=== PATIENT | female | born 1965 ===

== ENCOUNTER 2019-12-17 09:02 | Outpatient (REF) | payer OTHER, SELFPAY ==
--- NOTE | 2019-12-17 09:52 | P.BOP_ITS ---
Brief Operative Note Date of procedure: 12/17/19 Surgeon: Trina Vargas, DO This is doctor Trina Vargas. This is an ultrasound-guided fine-needle aspiration report. Patient name: Taylor Woo : 1965 Date of Examination: 12/17/2019 Referring Physician Is: PCP Indication: Multinodular Thyroid Porcedure: Procedure was explained to the patient. Alternatives, the risk and benefits were discussed. Written consent was obtained. A time-out was also obtained. After sterile preparation, fine-needle aspiration of a Right Lower Pole Medial 1.0 cm thyroid nodule was performed using direct ultrasound guidance to confirm accurate needle placement. Three aspirations were made using 27 gauge needles. Samples were submitted for cytology. One pass was dedicated for [employer] sequencing preventive maintenance engineer testing. Our attention was then turned to a Right Lower Pole Lateral 1.0 cm nodule. Fine-needle aspiration of this Right Lower Pole Lateral 1.0 cm thyroid nodule was performed using direct ultrasound guidance to confirm accurate needle placem ent. Four aspirations were made using 27 gauge needles. Samples were submitted for cytology. One pass was dedicated for [employer] sequencing preventive maintenance engineer testing We then turned our attention to a Right Mid Pole 1.2 cm nodule. Fine-needle aspiration of this Right Mid Pole 1.2 cm thyroid nodule was performed using direct ultrasound guidance to confirm accurate needle placement. Three aspira tions were made using 27 gauge needles. Samples were submitted for cytology. One pass was dedicated for [employer] sequencing preventive maintenance engineer testing The patient tolerated the procedure well. Aftercare instructions were provided. Impression: Uncomplicated fine needle aspiration biopsy of a R Lower Pole Medial 1.0 cm thyroid nodule, a R Lower Pole Lateral 1.0 cm thyroid nodule and a R Mid Pole 1.2 cm thyroid nodule under ultrasound guideance. Estimated blood loss (mL): 0
[2019-12-17] MEDS: Lidocaine HCl 1 % MPF 5 ML VIAL SUBCUT (12:25)
== END 2019-12-17 09:03 | disposition home or self-care (01) ==
LOC: HO.US 09:02
PROVIDERS: Visit Provider Internal Medicine
DX: E05.20 Thyrotoxicosis with toxic multinodular goiter without thyrotoxic crisis or storm (principal)
CPT/HCPCS: 10005; 10006; 88172; 88173; 88177

== ENCOUNTER → 2020-01-21 13:11 | Outpatient (BNVA) | payer OTHER, SELFPAY | PROVIDERS: PCP Internal Medicine; Visit Provider Nurse Practitioner Family | DX: Z13.89 Encounter for screening for other disorder (principal) ==

== ENCOUNTER 2020-02-16 12:51 | Outpatient (REF) | payer OTHER, SELFPAY ==
[2020-02-16 14:30] LABS: MANUAL DIFF FLAG NO
[2020-02-16 14:34] LABS: Basophils Percent Auto 0.1 % (0-2); Eosinophils Absolute Auto 0.1 X10*3/uL (0.0-0.4); Eosinophils Percent Auto 0.6 % (0-4); Hematocrit 47.2 % (37-47); Hemoglobin 15.3 g/dl (12.0-16.0); Imm Gran Abs Auto 0.02 X10*3/uL (0.00-0.03); Imm Gran Pct Auto 0.2 % (0.0-0.4); Lymphocytes Absolute Auto 2.6 X10*3/uL (1.2-4.9); Lymphocytes Percent Auto 31.1 % (20-40); Mean Corpuscular HGB Conc 32.4 g/dl (31.0-35.0); Mean Corpuscular Hemoglobin 30.2 pg (27.0-33.0); Mean Corpuscular Volume 93.3 fL (80-98); Mean Platelet Volume 11.8 fL (9.4-12.3); Monocytes Absolute Auto 0.4 X10*3/uL (0.1-1.2); Neutrophils Absolute Auto 5.3 X10*3/uL (2.0-8.3); Platelet Count 242 X10*3/uL (160-400); Red Blood Count 5.06 X10*6/uL (4.20-5.50); Red Cell Distribution Width 14.5 % (11.0-16.0); White Blood Count 8.5 X10*3/uL (4.8-10.8)
[2020-02-16 14:37] LABS: Glucose Urine UA NEG (NEG); Leukocyte Esterase Urine NEG (NEG); Nitrite Urine NEG (NEG); PH 5.5 (5.0-8.0); Specific Gravity - Urine 1.025 (1.005-1.025); Urine Blood NEG (NEG); Urine Ketones NEG (NEG); Urine Protein NEG (NEG-TRACE)
[2020-02-16 14:39] LABS: Appearance Urine CLEAR; Color Urine YELLOW
[2020-02-16 14:49] LABS: Mucus Urine 3+ /LPF; RBC Urine 0 /HPF (0); Squamous Epithelial Cell Urine 3+ /LPF; WBC Urine 0 /HPF (0-4)
[2020-02-16 15:13] LABS: Alanine Aminotransferase 20 U/L (0-31); Albumin Level 4.8 g/dL (3.5-5.0); Alkaline Phosphatase 107 U/L (39-117); Anion Gap 17 (12-20); Aspartate Amino Transferase 23 U/L (5-31); Bilirubin Total 0.5 mg/dL (0.0-1.0); Blood Urea Nitrogen 14 mg/dL (9-16); Calcium 9.4 mg/dL (8.4-10.2); Carbon Dioxide 24 mmol/L (22-29); Chloride 105 mmol/L (96-108); Cholesterol 257 mg/dL; Estimated Glomerular Filt Rate > 60; Glucose Random 82 mg/dL (60-115); HDL Cholesterol 59 mg/dL; LDL Cholesterol Calculated 161 mg/dl; Sodium 141 mmol/L (135-145); Total Protein 8.2 g/dL (6.5-8.0); Triglycerides 185 mg/dL
[2020-02-16 15:26] LABS: Free T4 (Free Thyroxine) 1.06 ng/dL (0.71-1.85); Thyroid Stimulating Hormone 1.51 uIU/mL (0.32-4.0)
[2020-02-16 15:29] LABS: Vitamin D 25-OH Total 37.3 ng/mL (>30)
[2020-02-16 15:39] LABS: Folate 17.2 ng/mL (> or = 4.0); Vitamin B12 327 pg/mL (200-900)
[2020-02-17 19:22] LABS: Triiodothyronine T3 Total 83 ng/dL (76-181)
== END 2020-02-16 12:52 | disposition home or self-care (01) ==
LOC: HO.LAB 12:51
PROVIDERS: Internal Medicine; PCP Internal Medicine; Visit Provider Internal Medicine
DX: E78.00 Pure hypercholesterolemia, unspecified (principal); E05.20 Thyrotoxicosis with toxic multinodular goiter without thyrotoxic crisis or storm
CPT/HCPCS: 36415; 80053; 80061; 81001; 82306; 82607; 82746; 84439; 84443; 84480; 85025

== ENCOUNTER 2020-02-24 15:02 | Outpatient (REF) | payer OTHER, SELFPAY ==
--- NOTE | 2020-02-24 15:09 | MM_ITS ---
EXAMINATION: MM SCREENING DIGITAL BREAST TOMOSYNTHESIS, BILATERAL CLINICAL INFORMATION: Screening. Asymptomatic. The lifetime risk of breast cancer based on the Tyrer-Cuzick Model is 5.8%. COMPARISON: Mammography: November 11, 2018 and studies dating back to August 11, 2013 TECHNIQUE: Digital breast tomosynthesis is performed in both the craniocaudal and mediolateral oblique views along with computer-aided detection (CAD). Synthesized 2D images are generated from the tomosynthesis. FINDINGS: There are scattered areas of fibroglandular density (ACR BI-RADS breast composition Category b). There are no significant masses, abnormal calcifications, or other abnormalities. MM/MM tomosynthesis screening BI IMPRESSION: There are no significant changes from prior study. ASSESSMENT: BI-RADS 1: Negative RECOMMENDATION: Routine annual mammography screening. This patient's information was entered into a reminder system with a target due date for their next mammogram.
== END 2020-02-24 15:03 | disposition home or self-care (01) ==
LOC: HO.MAMMO 15:02
PROVIDERS: PCP Internal Medicine; Visit Provider Internal Medicine
DX: Z12.31 Encounter for screening mammogram for malignant neoplasm of breast (principal)
CPT/HCPCS: 77063; 77067

== ENCOUNTER → 2020-03-28 09:01 | Outpatient (BNVA) | payer OTHER, SELFPAY | PROVIDERS: PCP Internal Medicine; Referring Provider Internal Medicine; Visit Provider Internal Medicine ==

== ENCOUNTER → 2020-06-20 10:07 | Outpatient (BNVA) | payer OTHER, SELFPAY | PROVIDERS: PCP Internal Medicine; Visit Provider Internal Medicine ==

== ENCOUNTER → 2020-08-03 07:25 | Outpatient (BNVA) | payer OTHER, SELFPAY | PROVIDERS: PCP Internal Medicine; Visit Provider Internal Medicine ==

== ENCOUNTER 2022-06-15 13:14 | Outpatient (REF) | payer OTHER, SELFPAY ==
--- NOTE | ~2022-06-15 | MM_ITS ---
EXAMINATION: MM SCREENING DIGITAL BREAST TOMOSYNTHESIS, BILATERAL CLINICAL INFORMATION: Screening. Asymptomatic. The lifetime risk of breast cancer based on the Tyrer-Cuzick Model is 4%. COMPARISON: Mammography: 02/24/2020, 06/11/2018, 12/02/2015 TECHNIQUE: Digital breast tomosynthesis is performed in both the craniocaudal and mediolateral oblique views along with computer-aided detection (CAD). Synthesized 2D images are generated from the tomosynthesis. FINDINGS: There are scattered areas of fibroglandular density (ACR BI-RADS breast composition Category b). There are no significant masses, abnormal calcifications, or other abnormalities. Parenchymal pattern is similar to prior studies. There is no developing density or architectural abnormality. Small circumscribed nodule posterior upper outer right breast is similar to prior studies. There is The axilla and skin contours are unremarkable. No significant changes. MM/MM tomosynthesis screening BI IMPRESSION: No mammographic evidence of malignancy. ASSESSMENT: BI-RADS 2: Benign RECOMMENDATION: Routine annual mammography screening. This patient's information was entered into a reminder system with a target due date for their next mammogram.
== END 2022-06-15 13:15 | disposition home or self-care (01) ==
LOC: HO.MAMMO 13:14
PROVIDERS: PCP Internal Medicine; Visit Provider Internal Medicine
DX: Z12.31 Encounter for screening mammogram for malignant neoplasm of breast (principal)
CPT/HCPCS: 77063; 77067

== ENCOUNTER 2022-07-10 11:09 | Emergency (ER) | payer OTHER, SELFPAY ==
--- NOTE | ~2022-07-10 | US_ITS ---
EXAMINATION: US ABDOMEN LIMITED CLINICAL INFORMATION: Right upper quadrant/epigastric pain. COMPARISON: Previous CT of the abdomen and pelvis July 2015 TECHNIQUE: Real-time imaging of the right upper quadrant abdominal viscera. FINDINGS: PANCREAS: The head of the pancreas is normal. The body and tail the pancreas are not well visualized due to bowel gas. LIVER: Normal. The liver is normal in size. The liver contour is normal. Parenchymal echogenicity is normal. No focal hepatic lesion. There is no intrahepatic biliary duct dilatation seen. GALLBLADDER: There are gallstones in the gallbladder. The gallbladder is normal in size. There is significant gallbladder wall thickening gallbladder wall measuring up to 0.9 cm. The fastener technologist reports the patient is tender over the gallbladder. Appearance is concerning for acute cholecystitis. COMMON BILE DUCT: Normal in caliber measuring 0.4 cm in diameter. RIGHT KIDNEY: Mild fullness of the right renal pelvis. No hydronephrosis. No renal calculi or focal parenchymal lesions. The kidney measures 10 cm in maximum dimension. FREE FLUID: None. US/US abdomen limited IMPRESSION: Gallstones and abnormally thickened gallbladder wall questionable for acute cholecystitis. Limited visualization of the pancreas.
[2022-07-10 11:44] VITALS: BP 125/67; PULSE 77; RESP 18; TEMP 36.7; O2SAT 98; BMI 27.9
--- NOTE | 2022-07-10 11:44 | ED_ITS ---
HPI - Abdominal Pain General Chief Complaint: Abdominal Pain Stated Complaint: Upper abd pain Time Seen by Provider: 07/10/22 16:06 Source: patient Mode of arrival: ambulatory Limitations: no limitations History of Present Illness HPI narrative: Patient comes to the emergency room complaining of intermittent right upper quadrant/epigastric pain for the last 3 days. Patient states that at night is when she has more pain. At this time, patient is asymptomatic. Patient denies nausea vomiting diarrhea. Denies any previous abdominal surgeries. Patient states that the pain is worse at night but when she had throughout the day that triggers the pain. Related Data Home Medications Medication Instructions Recorded Confirmed clonazepam 1 mg tablet 1 mg PO BID 12/15/19 12/26/21 risperidone 1 mg tablet (Risperdal) 1 mg PO BEDTIME 12/15/19 12/26/21 clotrimazole 1 % topical cream 1 appl topical BID 04/04/20 12/26/21 methimazole 5 mg tablet 10 mg PO DAILY 12/26/21 Previous Rx's Medication Instructions Recorded bisacodyl 5 mg tablet,delayed 10 mg PO ONCE 1 day #2 tabs 01/21/20 release (Dulcolax (bisacodyl)) polyethylene glycol 3350 17 17 g PO ONCE #238 grams 01/26/20 gram/dose oral powder (Miralax) clotrimazole 1 %-betamethasone See Rx Instructions topical 04/04/20 0.05 % cream-zinc ox 20 % paste .COMPLEX #45 grams topical tramadol 50 mg tablet 50 mg PO Q8H PRN pain 30 days #30 04/16/22 tabs omeprazole 20 mg capsule,delayed 20 mg PO DAILY #90 caps 05/15/22 release tramadol 50 mg tablet 50 mg PO BID PRN pain #5 tabs 07/10/22 Allergies Allergy/AdvReac Type Severity Reaction Status Date / Time barium sulfate Allergy Intermediate nightmares Verified 12/26/21 14:50 Penicillins Allergy Intermediate Hives Verified 12/26/21 14:50 varenicline [From Chantix] Allergy Intermediate nightmares Verified 12/26/21 14:50 Review of Systems Review of Systems Constitutional : No Weight loss, No Fever, No Chills, No Night Sweats, No Fatigue, No Malaise ENT/Mouth : No Hearing loss, No Ear Pain, No Nasal Congestion, No Sinus Pain, No Hoarseness, No sore throat, No Rhinorrhea, No Swallowing Difficulty Eyes: No Eye Pain, No Swelling, No Redness, No Foreign Body, No Discharge, No Vision Changes Cardiovascular : No Chest Pain, No SOB, No Dyspnea on Exertion, No Orthopnea, No Edema, No Palpitations Respiratory : No Cough, No Sputum, No Wheezing, No Smoke Exposure, No Dyspnea Gastrointestinal : No Nausea, No Vomiting, No Diarrhea, No Constipation, complaining of intermittent epigastric/right upper quadrant pain, No Hematochezia, No Melena Genitourinary : no irregular bleeding, No Dysuria, No Urinary Frequency, No Hematuria, No Urinary Incontinence, No Urgency, No Flank Pain, No Urinary Flow Changes, No Hesitancy Musculoskeletal : No joint pain, No Myalgias, No Joint Swelling Skin : No Skin Lesions, No rash Neuro : No Weakness, No Numbness, No Paresthesias, No Loss of Consciousness, No Dizziness, No Headache Psych : No Anxiety/Panic, No Depression, No SI/HI/AH/VH, No Social Issues, Heme/Lymph: No Bruising, No Bleeding,No Lymphadenopathy Endocrine : No Polyuria, No Polydipsia, No Temperature Intolerance PMFSH Past Medical History Medical History Annual physical exam Anxiety and depression GERD (gastroesophageal reflux disease) Hypercholesterolemia Hyperthyroidism Insomnia Noncompliance Tobacco abuse Toxic multinodular goiter Vitamin D deficiency Surgical History H/O: hysterectomy S/P fine needle biopsy Family History Family History Father Liver cancer Mother Arthritis of knee Brother Brain cancer Social History Social History Housing: Apartment Alcohol intake: never Patient Tobacco Use Status: Current everyday Tobacco user Tobacco use type: Cigarette Cigarette Packs Per Day: 0.5 Cigarettes Per Day: 10 e-Cigarette/Vaping Use: Never Used Second Hand Smoke Exposure: No Advance Directives: No Advance Directives Information Provided: No Current occupational status: unemployed Cognitive needs: No Hearing needs: No Vision needs: Yes Physical Exam ED Vital Signs: Vital Signs - 24 hr 07/10/22 11:44 07/10/22 15:24 07/10/22 16:07 Temperature 98.0 F 97.6 F 98.3 F Pulse Rate 77 76 87 Respiratory Rate 18 14 16 Blood Pressure 125/67 116/50 L 104/42 L Pulse Oximetry 98 98 97 Oxygen Delivery Method Room Air Room Air Room Air BMI result Body Mass Index 27.9 Const Other: Appearance: Alert. Oriented X3. No acute distress. Eyes: Pupils equal, round and reactive to light. ENT: Pharynx normal. Neck: Normal inspection. Neck supple. No lymph nodes noted. No crepitus CVS: Normal heart rate and rhythm. Pulses normal. Normal S1 and S2 Respiratory: No respiratory distress. Breath sounds normal. No Wheezing. No rales Abdomen: Soft and nontender. No rigidity. No distention. Negative Abdul sign, no guarding, no rebound Skin: Skin warm and dry. Normal skin color. Normal skin turgor. Extremities: No lower extremity edema. No Lacerations. No Rash Neuro: Oriented X 3. No motor deficit. No sensory deficit. Moving all extremities. No slurred speech. CN 2 through 12 grossly intact Psych: calm, cooperative, normal affect Course Course Course Narrative: RME: 57yo F w/PMHx GERD, HLD, hyperthyroid, complaining of epigastric/upper abdominal pain x3 days with associated nausea. Reports pain worse with eating. Denies vomiting, diarrhea, dysuria/hematuria Abdomen soft with epigastric/RUQ tenderness EKG, Labs, UA, abdomen ultrasound ordered Full HPI, ROS and PE to be performed by primary ED provider. Medical Decision Making Medical Decision Making [facility] Narrative: -patient's physical exam is normal. Patient has no abdominal tenderness whatsoever, negative Abdul sign -patient was p.o. challenged will clear liquids, patient did well, reports no pain nausea or vomiting. -I discussed the labs and imaging with Dr. Coles, patient maybe had a biliary colic, at this time, acute cholecystitis is not suspected. We will send the patient home with instructions to follow-up with surgery. Consult Healthcare Provider Management of the patient was discussed with: Blanket Winder Helper Lab Data [facility] Lab Attestation statement: I reviewed the patient's lab results. 07/10/22 12:03 07/10/22 12:03 Labs: Lab Results 07/10/22 07/10/2207/10/23 Range/Units 12:03 12:03 12:03 WBC 8.0 (4.8-10.8) X10*3/uL RBC 4.89 (4.20-5.50) X10*6/uL Hgb 14.9 (12.0-16.0) g/dl Hct 45.2 (37.0-47.0) % MCV 92.4 (80.0-98.0) fL MCH 30.5 (27.0-33.0) pg MCHC 33.0 (31.0-35.0) g/dl RDW 14.2 (11.0-16.0) % Plt Count 251 (160-400) X10*3/uL MPV 10.8 (9.4-12.3) fL Immature Gran % (Auto) 0.3 (0.0-0.4) % Neut % (Auto) 69.8 (45-73) % Lymph % (Auto) 24.4 (20-40) % Tift % (Auto) 4.9 (2-11) % Eos % (Auto) 0.5 (0-4) % Baso % (Auto) 0.1 (0-2) % Lymph # (Auto) 1.9 (1.2-4.9) X10*3/uL Tift # (Auto) 0.4 (0.1-1.2) X10*3/uL Eos # (Auto) 0.0 (0.0-0.4) X10*3/uL Baso # (Auto) 0.0 (0.0-0.2) X10*3/uL Abs Immat Gran (auto) 0.02 (0.00-0.03) X10*3/uL Absolute Neuts (auto) 5.6 (2.0-8.3) x10*3/uL Absolute Nucleated RBC 0.000 (0.0-0.012) X10*3/uL Nucleated RBC % (auto) 0.0 (0.0-0.2) /100WBC Sodium 141 (135-145) mmol/L Potassium 4.4 (3.3-5.1) mmol/L Chloride 109 H (96-108) mmol/L Carbon Dioxide 24 (22-29) mmol/L Anion Gap 12 (12-20) BUN 10 (9-16) mg/dL Creatinine 0.82 (0.5-1.4) mg/dL Estim Creat Clear Calc 78.1 Estimated GFR > 60 Random Glucose 92 (60-115) mg/dL Calcium 9.2 (8.4-10.2) mg/dL Magnesium 2.3 (1.6-2.6) mg/dL Total Bilirubin 0.6 (0.0-1.0) mg/dL Direct Bilirubin 0.1 (0.0-0.5) mg/dL AST 15 (5-31) U/L ALT 12 (0-31) U/L Alkaline Phosphatase 100 (39-117) U/L Troponin I High Sens < 2.7 (<3.5-17.0) ng/L Total Protein 7.3 (6.5-8.0) g/dL Albumin 4.2 (3.5-5.0) g/dL Lipase 11 (8-78) U/L Radiology Impression Discussion of test interpretation with radiology: I have reviewed the radiologi st's reading. Radiologist Impression: FINDINGS: PANCREAS: The head of the pancreas is normal. The body and tail the pancreas are not well visualized due to bowel gas. LIVER: Normal. The liver is normal in size. The liver contour is normal. Parenchymal echogenicity is normal. No focal hepatic lesion. There is no intrahepatic biliary duct dilatation seen. GALLBLADDER: There are gallstones in the gallbladder. The gallbladder is normal in size. There is significant gallbladder wall thickening gallbladder wall measuring up to 0.9 cm. The sleep lab technologist reports the patient is tender over the gallbladder. Appearance is concerning for acute cholecystitis. COMMON BILE DUCT: Normal in caliber measuring 0.4 cm in diameter. RIGHT KIDNEY: Mild fullness of the right renal pelvis. No hydronephrosis. No renal calculi or focal parenchymal lesions. The kidney measures 10 cm in maximum dimension. FREE FLUID: None. US/US abdomen limited IMPRESSION: Gallstones and abnormally thickened gallbladder wall questionable for acute cholecystitis. Limited visualization of the pancreas. Discharge Plan Discharge Clinical Impression: Biliary colic Patient Disposition: Home, Self-Care Instructions: Biliary Colic (ED) Additional Instructions: Please follow-up with your primary care physician tomorrow. If you have any worsening or new symptoms, please return to the emergency room or call 911 Prescriptions: New tramadol 50 mg tablet 50 mg PO BID PRN (Reason: pain) Qty: 5 0RF No Action polyethylene glycol 3350 [Miralax] 17 gram/dose powder 17 g PO ONCE Qty: 238 0RF Rx Instructions: As directed by gastroenterology department at [facility], bowel prep tramadol 50 mg tablet 50 mg PO Q8H PRN (Reason: pain) 30 Days Qty: 30 2RF omeprazole 20 mg capsule,delayed release(DR/EC) 20 mg PO DAILY Qty: 90 1RF clotrimazole 1 % cream 1 appl topical BID clotrimazole-betameth dip-zinc 1-0.05-20 % combo pack See Rx Instructions topical .COMPLEX Qty: 45 0RF Rx Instructions: apply CLOTRIMAZOLE/BETAMETHASONE CREAM twice daily: use ZINC OXIDE PASTE as needed/as directed topical risperidone [Risperdal] 1 mg tablet 1 mg PO BEDTIME clonazepam 1 mg tablet 1 mg PO BID methimazole 5 mg tablet 10 mg PO DAILY bisacodyl [Dulcolax (bisacodyl)] 5 mg tablet,delayed release (DR/EC) 10 mg PO ONCE 1 Days Qty: 2 0RF Rx Instructions: take 2 tabs at noon the day before your colonoscopy Referrals: Nithin Coles MD [Physician] - 1 week
--- NOTE | 2022-07-10 11:46 | ECG_ITS ---
Test Reason : eEPIGASTRIC PAIN Blood Pressure : / mmHG Vent. Rate : 067 BPM Atrial Rate : 067 BPM P-R Int : 142 ms QRS Dur : 076 ms QT Int : 408 ms P-R-T Axes : 000 038 046 degrees QTc Int : 431 ms Normal sinus rhythm Normal ECG No previous ECGs available Referred By: Lorena Davis Electronically Signed By:MARIA D VAZQUEZ
[2022-07-10 12:07] LABS: MANUAL DIFF FLAG NO
[2022-07-10 12:08] LABS: Basophils Percent Auto 0.1 % (0-2); Eosinophils Percent Auto 0.5 % (0-4); Hematocrit 45.2 % (37.0-47.0); Hemoglobin 14.9 g/dl (12.0-16.0); Imm Gran Abs Auto 0.02 X10*3/uL (0.00-0.03); Imm Gran Pct Auto 0.3 % (0.0-0.4); Lymphocytes Absolute Auto 1.9 X10*3/uL (1.2-4.9); Lymphocytes Percent Auto 24.4 % (20-40); Mean Corpuscular Hemoglobin 30.5 pg (27.0-33.0); Mean Corpuscular Volume 92.4 fL (80.0-98.0); Mean Platelet Volume 10.8 fL (9.4-12.3); Monocytes Absolute Auto 0.4 X10*3/uL (0.1-1.2); Monocytes Percent Auto 4.9 % (2-11); Neutrophils Absolute Auto 5.6 x10*3/uL (2.0-8.3); Neutrophils Percent Auto 69.8 % (45-73); Platelet Count 251 X10*3/uL (160-400); Red Blood Count 4.89 X10*6/uL (4.20-5.50); Red Cell Distribution Width 14.2 % (11.0-16.0)
[2022-07-10 12:26] LABS: Alanine Aminotransferase 12 U/L (0-31); Albumin Level 4.2 g/dL (3.5-5.0); Alkaline Phosphatase 100 U/L (39-117); Anion Gap 12 (12-20); Aspartate Amino Transferase 15 U/L (5-31); Bilirubin Direct 0.1 mg/dL (0.0-0.5); Bilirubin Total 0.6 mg/dL (0.0-1.0); Blood Urea Nitrogen 10 mg/dL (9-16); Calcium 9.2 mg/dL (8.4-10.2); Carbon Dioxide 24 mmol/L (22-29); Chloride 109 mmol/L (96-108); Creatinine Clr Calc Pharmacy 78.1; Estimated Glomerular Filt Rate > 60; Glucose Random 92 mg/dL (60-115); Lipase 11 U/L (8-78); Magnesium 2.3 mg/dL (1.6-2.6); Potassium 4.4 mmol/L (3.3-5.1); Sodium 141 mmol/L (135-145); Total Protein 7.3 g/dL (6.5-8.0)
[2022-07-10 12:34] LABS: Troponin-I High Sensitivity < 2.7 ng/L (<3.5-17.0)
[2022-07-10 15:24] VITALS: BP 116/50; PULSE 76; RESP 14; TEMP 36.4; O2SAT 98
[2022-07-10 16:07] VITALS: BP 104/42; PULSE 87; RESP 16; TEMP 36.8; O2SAT 97
== END 2022-07-10 16:59 | disposition home or self-care (01) ==
PROVIDERS: Physician Assistant; Emergency Provider Emergency Medicine; PCP Internal Medicine
DX: K80.50 Calculus of bile duct without cholangitis or cholecystitis without obstruction (principal); R10.10 Upper abdominal pain, unspecified; E05.90 Thyrotoxicosis, unspecified without thyrotoxic crisis or storm
CPT/HCPCS: 36415; 76705; 80048; 80076; 83690; 83735; 84484; 85025; 93005; 99284

== ENCOUNTER → 2022-08-02 13:09 | Outpatient (BNVA) | payer OTHER, SELFPAY | PROVIDERS: PCP Internal Medicine; Visit Provider Surgery | DX: K80.20 Calculus of gallbladder without cholecystitis without obstruction (principal); K21.9 Gastro-esophageal reflux disease without esophagitis; K59.00 Constipation, unspecified; E05.20 Thyrotoxicosis with toxic multinodular goiter without thyrotoxic crisis or storm; E78.00 Pure hypercholesterolemia, unspecified; E05.90 Thyrotoxicosis, unspecified without thyrotoxic crisis or storm; F41.1 Generalized anxiety disorder; Z72.0 Tobacco use | CPT/HCPCS: 99202 ==

== ENCOUNTER 2022-09-27 11:33 | Outpatient (REF) | payer OTHER, SELFPAY ==
[2022-09-27 14:59] LABS: Alanine Aminotransferase 20 U/L (0-31); Albumin Level 4.2 g/dL (3.5-5.0); Alkaline Phosphatase 99 U/L (39-117); Anion Gap 12 (12-20); Aspartate Amino Transferase 24 U/L (5-31); Bilirubin Total 0.4 mg/dL (0.0-1.0); Blood Urea Nitrogen 13 mg/dL (9-16); Calcium 9.7 mg/dL (8.4-10.2); Carbon Dioxide 25 mmol/L (22-29); Chloride 108 mmol/L (96-108); Estimated Glomerular Filt Rate > 60; Glucose Random 81 mg/dL (60-115); Potassium 4.2 mmol/L (3.3-5.1); Sodium 141 mmol/L (135-145); Total Protein 7.3 g/dL (6.5-8.0)
[2022-09-27 15:15] LABS: TSH reflex Free T4 4.69 uIU/mL (0.32-4.0)
[2022-09-27 18:39] LABS: Free T4 (Free Thyroxine) 0.93 ng/dL (0.71-1.85)
== END 2022-09-27 11:34 | disposition home or self-care (01) ==
LOC: HO.LAB 11:33
PROVIDERS: Visit Provider Nurse Practitioner Family
DX: E05.90 Thyrotoxicosis, unspecified without thyrotoxic crisis or storm (principal)
CPT/HCPCS: 36415; 80053; 84439; 84443

== ENCOUNTER 2022-10-04 16:16 | Outpatient (AMB) | payer OTHER, SELFPAY ==
[2022-10-04 16:21] VITALS: BP 120/72; PULSE 92; O2SAT 99; BMI 26.8
--- NOTE | 2022-10-04 16:21 | MHC.PC.OV ---
Vital Signs 10/04/22 16:21 Height 5 ft 5 in Weight 161 lb 0.8 oz BMI 26.8 BP 120/72 Blood Pressure Location Lt brachial Position Sitting Pulse 92 Pulse Source Pulse Oximeter Temp Source Skin Pulse Oximetry (%) 99 Oxygen Delivery Method Room Air Intake Visit Reasons: Annual PE Intake Note: Patient is here today for a physical. Bookstore Manager Required: No Allergies barium sulfate Allergy (Intermediate, Verified 10/04/22 16:32) nightmares Penicillins Allergy (Intermediate, Verified 10/04/22 16:32) Hives varenicline [From Chantix] Allergy (Intermediate, Verified 10/04/22 16:32) nightmares Medication List - Last Reconciled 10/04/22 by ANDERSON Snyder bisacodyl (Dulcolax (bisacodyl)) 10 mg (2 x 5 mg) PO ONCE 1 day clonazepam 1 mg PO BID methimazole 10 mg PO DAILY omeprazole 20 mg PO DAILY risperidone (Risperdal) 1 mg PO BEDTIME tramadol 50 mg PO BID PRN Tobacco use date assessed: 10/04/22 Dental Screening Dental Screen Date: 10/04/22 Did you have a dental visit in the last 12 months?: Yes Did you have a dental problem in the last 6 months where you did not have access to dental care?: No Was dental information given to patient?: Patient has dentist HPI Annual PE HPI Details Patient is a 57-year-old female who presents today for physical exam. Patient of Dr. Sutton. Medical history significant for hyperthyroidism-followed by [facility] endocrinology-on methimazole daily-endocrinology appointment 10/08/2022, hypercholesterolemia, tobacco abuse-reports smoking for long time-reports cutting down-will refer for low-dose CT scan, constipation, anxiety-followed by Psychiatry and therapist at [facility]. Today we discussed patient's need for colon cancer screening, patient has declined colonoscopy, interested in Cologuard. Patient did have hysterectomy although she does know if she still has her cervix or not, therefore will refer to Gynecology for an evaluation and if possibly need a Pap smear. Mammogram normal 05/2022. Patient denies shortness of breath or chest pain. Reports up-to-date with eye exam. [facility] Medical History Annual physical exam Anxiety and depression GERD (gastroesophageal reflux disease) Hypercholesterolemia Hyperthyroidism Insomnia Noncompliance Tobacco abuse Toxic multinodular goiter Vitamin D deficiency Surgical History H/O: hysterectomy S/P fine needle biopsy Family History Father Liver cancer Mother Arthritis of knee Brother Brain cancer Social History Housing: Apartment Alcohol intake: never Patient Tobacco Use Status: Current everyday Tobacco user Tobacco use type: Cigarette Cigarette Packs Per Day: 0.5 Cigarettes Per Day: 10 e-Cigarette/Vaping Use: Never Used Second Hand Smoke Exposure: No Current occupational status: unemployed Cognitive needs: No Hearing needs: No Vision needs: Yes Questionnaire PHQ-9 Over the last 2 weeks, how often have you been bothered by any of the following problems? 1. Little interest or pleasure in doing things: not at all 2. Feeling down, depressed, or hopeless: not at all 3. Trouble falling or staying asleep, or sleeping too much: not at all 4. Feeling tired or having little energy: not at all 5. Poor appetite or overeating: not at all 6. Feeling bad about yourself - or that you are a failure or have let yourself or your family down: not at all 7. Trouble concentrating on things, such as reading the newspaper or watching television: not at all 8. Moving or speaking so slowly that other people could have noticed. Or the opposite - being so fidgety or restless that you have been moving around a lot more than usual: not at all 9. Thoughts that you would be better off or of hurting yourself in some way: not at all Total score: 0 Depression Screening Interpretation: Negative 57411 - PHQ-9 Billing: Yes Source: Developed by Drs. Daniel Ervin, Mercy Shaw, Rolando Hodge and colleagues, with an educational natasha from [employer]. Thrive Questionnaire Date Thrive assessed: 10/04/22 I am a: Patient What is your living situation today?: I have a steady place to live Within the past 12 months, did the food you bought not last and you didn't have the money to get more?: Never true Within the past 12 months, did you worry whether your food would run out before you got money to buy more?: Never true Do you have trouble paying for medicines?: No Do you have trouble getting transportation to medical appointments?: No Do you have trouble paying your heating and electricity bill?: No Do you have trouble taking care of your child, family member or friend?: No Do you have trouble with day-to-day activities such as bathing, preparing meals, shopping, managing finances, etc.?: No Are you currently unemployed and looking for a job?: No Are you interested in more education?: No Currently or been in a relationship where the following occur: no concerns reported AUDIT C Alcohol Use Questionnaire (AUDIT-C) 1. How often do you have a drink containing alcohol?: Never 2. How many drinks containing alcohol do you have on a typical day when you are drinking?: 1 or 2 3. How often do you have six or more drinks on one occasion?: Never Total Score: 0 Score Reviewed/Action Taken: No SHAYNA-7 AMB Questionnaire SHAYNA-7 Date SHAYNA - 7 assessed: 10/04/22 Feeling nervous, anxious, or on edge: 0 = Not at all Not being able to stop or control worryin = Not at all Worrying too much about different things: 0 = Not at all Trouble relaxin = Not at all Being so restless that it is hard to sit still: 0 = Not at all Becoming easily annoyed or irritable: 0 = Not at all Feeling afraid as if something awful might happen: 0 = Not at all Total SHAYNA-7 score (0-4 normal; 5-9 mild; 10-14 moderate; 15-21 severe): 0 Source: Developed by Drs. Daniel Ervin, Mercy Shaw, Rolando Hodge and colleagues, with an educational natasha from [employer]. SHAYNA-7 Assessment Billing SHAYNA-7 Assessment Tool: SHAYNA-7 Assessment 46012 Review of Systems Const Denies body aches, Denies chills, Denies fever(s) and Denies headache(s) Eyes Denies change in vision ENT Denies dizziness, Denies otalgia, Denies headache(s), Denies nasal discharge, Denies sinus pain and Denies sore throat Card Denies chest pain, Denies edema, Denies lightheadedness and Denies dyspnea Resp Denies cough, Denies dyspnea and Denies wheezing GI Denies abdominal pain, Denies constipation, Denies diarrhea, Denies nausea and Denies vomiting Denies dysuria Musc Reports back pain, Denies myalgias and Reports arthralgias (knees) Skin/Breast Denies lesions, Denies rash and Denies unusual bruising Neuro Denies dizziness and Denies headache(s) Aller/Immun Denies wheezing Physical exam (Primary Care) Vital Signs: Last Vital Signs Pulse 92 10/04/22 16:21 BP 120/72 10/04/22 16:21 Pulse Ox 99 10/04/22 16:21 Oxygen Delivery Method Room Air 10/04/22 16:21 BMI result Body Mass Index 26.8 Tobacco/Smoking Status: Tobacco use Status Tobacco use date assessed 10/04/22 10/04/22 16:28 Patient Tobacco Use Status Current everyday Tobacco 10/04/22 16:28 Tobacco use type Cigarette 10/04/22 16:28 e-Cigarette/Vaping Use Never Used 10/04/22 16:28 PHQ-9: PHQ-9 Score PHQ-9: Total score 0 10/04/22 16:28 Depression Screening Interpretation: Negative Thrive Assessment: Date of Thrive Assessment Date Thrive assessed 10/04/22 10/04/22 16:28 Currently or been in a relationship where the following occur: no concerns reported Const General: cooperative and no acute distress Orientation/consciousness: patient oriented x3 HENMT Head: Yes normocephalic and Yes atraumatic Ears: TM's normal bilaterally Face and sinus: Yes sinuses nontender Mouth: oropharynx normal and moist mucous membranes Throat: Yes posterior oropharynx normal Eyes General: appearance normal, both eyes and all related structures Pupils: Equal, round and reactive pupils present EOM: EOMs intact bilaterally Neck Neck: Yes normal visual inspection, Yes full ROM and Yes no lymphadenopathy Thyroid: Thyroid normal Resp Effort & Inspection: normal respiratory effort and able to speak in complete sentences Auscultation: clear to auscultation bilaterally, no crackles, no rales, no rhonchi and no wheezes Cardio Rate: regular rate Rhythm: regular rhythm Heart sounds: S1 normal heart sound present, S2 normal heart sound present and no murmurs GI Palpation (GI): Soft to palpation, not firm, nontender, no guarding, not rigid and no hepatosplenomegaly Auscultation: normal bowel sounds General: No CVA tenderness Back/Spine/Pelvis Back: No CVA tenderness Skin General skin exam: no rashes or lesions noted Neuro General: patient oriented x3 Cranial nerves: Yes Equal, round and reactive pupils present Gait exam (Neuro): Normal gait present Extrem General: Yes full ROM and No edema Assessment and Plan Assessment & Plan (1) Generalized anxiety disorder: Comment: [facility] Counseling weekly Code(s): F41.1 - Generalized anxiety disorder Plan: Continue to follow-up with psychiatrist and therapist at [facility] Patient is on Klonopin 1 mg b.i.d. p.r.n.-educated about dependency and memory loss (2) Toxic multinodular goiter: Code(s): E05.20 - Thyrotoxicosis with toxic multinodular goiter without thyrotoxic crisis or storm Plan: Continue to follow-up with endocrinology in [place], next appointment 10/08/2022 Patient is currently on methimazole 10 mg daily (3) GERD (gastroesophageal reflux disease): Code(s): K21.9 - Gastro-esophageal reflux disease without esophagitis Qualifiers: Esophagitis presence: without esophagitis Qualified Code(s): K21.9 - Gastro-esophageal reflux disease without esophagitis Plan: Stable with omeprazole 20 mg daily Avoid GERD trigger foods Do not lay down 2-3 hours after evening meal (4) Hypercholesterolemia: Code(s): E78.00 - Pure hypercholesterolemia, unspecified Plan: Will check lipid panel Low-cholesterol diet (5) Adult general medical exam: Code(s): Z00.00 - Encounter for general adult medical examination without abnormal findings (6) Cervical cancer screening: Code(s): Z12.4 - Encounter for screening for malignant neoplasm of cervix (7) Knee pain: Code(s): M25.569 - Pain in unspecified knee Plan: Reports ongoing bilateral knee pain, reports tramadol helps with pain-refill sent-patient reports taking tramadol as prescribed. (8) Colon cancer screening: Code(s): Z12.11 - Encounter for screening for malignant neoplasm of colon Plan: Cologuard ordered (9) Hyperthyroidism: Code(s): E05.90 - Thyrotoxicosis, unspecified without thyrotoxic crisis or storm Plan: Continue to follow-up with [facility] endocrinology in [place], next appointment 10/08/2022 Patient is currently on methimazole 10 mg daily TSH 4.69, free T4 0.93 09/2022-results were printed for patient to provide to her endocrinology next week (10) Tobacco abuse: Code(s): Z72.0 - Tobacco use Plan: Encouraged smoking cessation Referral for chest low-dose CT scan Plan Follow-up with PCP in 6 months or sooner as needed Orders: Orders Lipid Panel Today E78.00 - Pure hypercholesterolemia, unspecified Vitamin D 25-OH Total Today Z00.00 - Encounter for general adult medical examination without abnormal findings Referrals Cologuard Test Z12.11 - Encounter for screening for malignant neoplasm of colon, Z12.12 - Encounter for screening for malignant neoplasm of rectum ANCILLARY SPECIALIST Referral Z12.4 - Encounter for screening for malignant neoplasm of cervix Thoracic Surgery Referral Z72.0 - Tobacco use Medications: Changed From tramadol 50 mg PO BID PRN 5 tabs 0RF pain M25.569 - Pain in unspecified knee To tramadol 50 mg PO BID 15 days PRN 30 tabs 0RF pain M25.569 - Pain in unspecified knee Coding Level of Care Code Est Pt Prev Care 40-64y(23622) Diagnoses Generalized anxiety disorder F41.1 Toxic multinodular goiter E05.20 GERD (gastroesophageal reflux disease) K21.9 Esophagitis presence: without esophagitis Hypercholesterolemia E78.00 Adult general medical exam Z00.00 Cervical cancer screening Z12.4 Knee pain M25.569 Colon cancer screening Z12.11 Hyperthyroidism E05.90 Tobacco abuse Z72.0 Additional Codes SHAYNA-7 Assessment Billing - SHAYNA-7 Assessment Tool: SHAYNA-7 Assessment 34736 ([id number])
== END 2022-10-04 17:12 | disposition home or self-care (01) ==
PROVIDERS: PCP Internal Medicine; Visit Provider Nurse Practitioner Family
DX: Z00.00 Encounter for general adult medical examination without abnormal findings (principal); E05.20 Thyrotoxicosis with toxic multinodular goiter without thyrotoxic crisis or storm; K21.9 Gastro-esophageal reflux disease without esophagitis; E05.90 Thyrotoxicosis, unspecified without thyrotoxic crisis or storm; F41.1 Generalized anxiety disorder; E78.00 Pure hypercholesterolemia, unspecified; M25.561 Pain in right knee; Z72.0 Tobacco use; M25.562 Pain in left knee
CPT/HCPCS: 99396

== ENCOUNTER 2022-10-25 05:22 | Emergency (ER) | payer OTHER, SELFPAY ==
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
[2022-10-25 07:54] VITALS: BP 116/62; PULSE 83; RESP 16; TEMP 36.9; O2SAT 96; BMI 25.7
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
[2022-10-25 09:47] VITALS: BP 105/44; PULSE 82; RESP 16; TEMP 36.6; O2SAT 95
[2022-10-25 10:41] VITALS: BP 95/42; PULSE 81; RESP 16; TEMP 36.7; O2SAT 95
== END 2022-10-25 12:36 | disposition home or self-care (01) ==
PROVIDERS: Emergency Provider Emergency Medicine; PCP Internal Medicine
DX: S80.02XA Contusion of left knee, initial encounter (principal); R07.89 Other chest pain; F17.210 Nicotine dependence, cigarettes, uncomplicated; V43.62XA Car passenger injured in collision with other type car in traffic accident, initial encounter; Y93.9 Activity, unspecified; Y92.410 Unspecified street and highway as the place of occurrence of the external cause; Y99.9 Unspecified external cause status; Z79.899 Other long term (current) drug therapy; Z71.6 Tobacco abuse counseling
CPT/HCPCS: 71046; 73564; 99283

== ENCOUNTER 2023-05-28 15:40 | Outpatient (AMB) | payer OTHER, SELFPAY ==
[2023-05-28 15:49] VITALS: BP 118/62; PULSE 92; O2SAT 96; BMI 26.1
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
== END 2023-05-28 16:25 | disposition home or self-care (01) ==
PROVIDERS: PCP Internal Medicine; Visit Provider Internal Medicine
DX: E78.00 Pure hypercholesterolemia, unspecified (principal); K21.9 Gastro-esophageal reflux disease without esophagitis; F17.210 Nicotine dependence, cigarettes, uncomplicated; K80.20 Calculus of gallbladder without cholecystitis without obstruction; K29.70 Gastritis, unspecified, without bleeding; F41.1 Generalized anxiety disorder; Z12.11 Encounter for screening for malignant neoplasm of colon
CPT/HCPCS: 99214

== ENCOUNTER 2023-07-09 15:03 | Outpatient (REF) | payer OTHER, SELFPAY | END 2023-07-09 15:04 | disposition home or self-care (01) | LOC: HO.MAMMO 15:03 | PROVIDERS: Visit Provider Internal Medicine | DX: Z12.31 Encounter for screening mammogram for malignant neoplasm of breast (principal) | CPT/HCPCS: 77063; 77067 ==

== ENCOUNTER → 2023-07-09 15:45 | Outpatient (BNV) | payer OTHER, SELFPAY | PROVIDERS: Visit Provider Radiology Diagnostic Radiology | DX: Z12.31 Encounter for screening mammogram for malignant neoplasm of breast (principal) | CPT/HCPCS: 77063; 77067 ==

== ENCOUNTER 2023-10-01 13:25 | Outpatient (AMB) | payer OTHER, SELFPAY ==
[2023-10-01 13:39] VITALS: BP 114/70; PULSE 99; O2SAT 97; BMI 23.8
--- NOTE | 2023-10-01 13:39 | MHC.PC.OV ---
Vital Signs 10/01/23 13:39 Height 5 ft 5 in Weight 143 lb BMI 23.8 BP 114/70 Blood Pressure Location Lt brachial Position Sitting Pulse 99 Pulse Source Pulse Oximeter Pulse Oximetry (%) 97 Oxygen Delivery Method Room Air Intake Visit Reasons: Med Follow Up Allergies barium sulfate Allergy (Intermediate, Verified 10/01/23 13:42) nightmares Penicillins Allergy (Intermediate, Verified 10/01/23 13:42) Hives varenicline [From Chantix] Allergy (Intermediate, Verified 10/01/23 13:42) nightmares Medication List - Last Reconciled 10/01/23 by Laurie Sutton MD bisacodyl (Dulcolax (bisacodyl)) 10 mg (2 x 5 mg) PO ONCE 1 day clonazepam 1 mg PO BID ibuprofen 600 mg PO Q8H PRN methimazole 10 mg PO DAILY omeprazole 20 mg PO DAILY risperidone (Risperdal) 1 mg PO BEDTIME tramadol 50 mg PO BID PRN 30 days Tobacco use date assessed: 05/28/23 Dental Screening Dental Screen Date: 05/28/23 HPI Med Follow Up HPI Details 58-year-old female smoker (14 lb weight loss) with hypercholesterolemia cholelithiasis generalized anxiety disorder coming in for follow-up. Last seen in May. Patient's mammogram is up-to-date. Review of the notes discharge from the hospital in 08/16/2023 for cholangitis having had septic shock and thrombocytopenia. Has a history of choledocholithiasis had ERCP done August 19 2023 had platelet transfusion. ICU admission had Levophed support. Patient had several attempts with a triple size extraction balloon did not allow to retrieve the stone and after several attempts biliary stent placed. Patient was advised to have an ERCP done in 2-3 months for stent removal, sphincterotomy/lithotripsy. Received also note from the [facility] and shank department supervisor as several attempts were made contact the patient for the follow-up ERCP to remove the stent. PAtient has a ff up with the GI already [facility] Medical History (Updated 10/01/23 @ 13:53 by Laurie Sutton MD) Toxic multinodular goiter Hyperthyroidism (~2003) Hypercholesterolemia GERD (gastroesophageal reflux disease) Nicotine dependence, cigarettes, uncomplicated Vitamin D deficiency Insomnia Anxiety and depression Surgical History (Updated 08/28/23 @ 14:04 by ALEXANDER Tavarez) History of cholecystectomy History of hysterectomy (~2005) S/P thyroid biopsy (~2019) Family History Father Liver cancer Mother Arthritis of knee Brother Brain cancer Social History Housing: Apartment Alcohol intake: never Patient Tobacco Use Status: Current everyday Tobacco user Tobacco use type: Cigarette Cigarette Packs Per Day: 0.5 Cigarettes Per Day: 10 e-Cigarette/Vaping Use: Never Used Second Hand Smoke Exposure: No Current occupational status: unemployed Cognitive needs: No Hearing needs: No Vision needs: Yes Questionnaire Thrive Questionnaire Date Thrive assessed: 05/28/23 I am a: Patient What is your living situation today?: I have a steady place to live Within the past 12 months, did the food you bought not last and you didn't have the money to get more?: Never true Within the past 12 months, did you worry whether your food would run out before you got money to buy more?: Never true Do you have trouble paying for medicines?: No Do you have trouble getting transportation to medical appointments?: No Do you have trouble paying your heating and electricity bill?: No Do you have trouble taking care of your child, family member or friend?: No Do you have trouble with day-to-day activities such as bathing, preparing meals, shopping, managing finances, etc.?: No Are you currently unemployed and looking for a job?: No Are you interested in more education?: No Please select the resources that you would like help with: None Currently or been in a relationship where the following occur: No concerns reported THRIVE Score: 0 AUDIT C Alcohol Use Questionnaire (AUDIT-C) 1. How often do you have a drink containing alcohol?: Never 2. How many drinks containing alcohol do you have on a typical day when you are drinking?: 1 or 2 3. How often do you have six or more drinks on one occasion?: Never Total Score: 0 Score Reviewed/Action Taken: No SHAYNA-7 AMB Questionnaire SHAYNA-7 Date SHAYNA - 7 assessed: 05/28/23 Feeling nervous, anxious, or on edge: 0 = Not at all Not being able to stop or control worryin = Not at all Worrying too much about different things: 0 = Not at all Trouble relaxin = Not at all Being so restless that it is hard to sit still: 0 = Not at all Becoming easily annoyed or irritable: 0 = Not at all Feeling afraid as if something awful might happen: 0 = Not at all Total SHAYNA-7 score (0-4 normal; 5-9 mild; 10-14 moderate; 15-21 severe): 0 Source: Developed by Drs. Daniel Ervin, Mercy Shaw, Rolando Hodge and colleagues, with an educational natasha from [employer]. SHAYNA-7 Assessment Billing SHAYNA-7 Assessment Tool: SHAYNA-7 Assessment 85403 Physical exam (Primary Care) Vital Signs: Last Vital Signs Pulse 99 10/01/23 13:39 BP 114/70 10/01/23 13:39 Pulse Ox 97 10/01/23 13:39 Oxygen Delivery Method Room Air 10/01/23 13:39 BMI result Body Mass Index 23.8 Tobacco/Smoking Status: Tobacco use Status Tobacco use date assessed 05/28/23 10/01/23 13:41 Patient Tobacco Use Status Current everyday Tobacco 10/01/23 13:41 Tobacco use type Cigarette 10/01/23 13:41 e-Cigarette/Vaping Use Never Used 10/01/23 13:41 Thrive Assessment: Date of Thrive Assessment Date Thrive assessed 05/28/23 10/01/23 13:41 Currently or been in a relationship where the following occur: No concerns reported Const General: alert; No acute distress Eyes Conjunctivae: conjunctivae normal Resp Auscultation: clear to auscultation bilaterally Cardio Rate: regular rate Rhythm: regular rhythm GI Inspection: Yes normal to inspection Extrem General: Yes normal to inspection and No edema Assessment and Plan Assessment & Plan (1) Ascending cholangitis: Comment: Stent placement August 2023 Code(s): K83.09 - Other cholangitis Plan: Discussed with the patient on the urgent matter to see/follow-up with Gastroenterology for repeat ERCP and stent removal. (2) Hyperthyroidism: Onset Date: ~2003 Code(s): E05.90 - Thyrotoxicosis, unspecified without thyrotoxic crisis or storm Plan: Continue with present medication of methimazole (3) Hypercholesterolemia: Code(s): E78.00 - Pure hypercholesterolemia, unspecified Plan: Avoid fried foods, chicken skin, eggs, butter margarine, pastries and meat. Be it pork or beef they have a lot of cholesterol LDL goal of less than 130 and triglyceride of less than 150 (4) GERD (gastroesophageal reflux disease): Code(s): K21.9 - Gastro-esophageal reflux disease without esophagitis Qualifiers: Esophagitis presence: without esophagitis Qualified Code(s): K21.9 - Gastro-esophageal reflux disease without esophagitis Plan: Avoid the foods that causes that usually spicy foods, tomato products, juices, coffee, soda and foods that your sensitive to. After eating do not lie down, allow 3-4 hours before in lie down. And keep the head of bed above 30 degrees to avoid the acid from going up. (5) Generalized anxiety disorder: Comment: [facility] weekly Code(s): F41.1 - Generalized anxiety disorder Plan: Continue with counseling and therapy (6) Nicotine dependence, cigarettes, uncomplicated: Comment: (current smoker - 1/2ppd) Code(s): F17.210 - Nicotine dependence, cigarettes, uncomplicated Plan: Patient is strongly advised to stop smoking! Medications: Refilled tramadol 50 mg PO BID 30 days PRN 30 tabs 0RF pain M25.569 - Pain in unspecified knee Coding Level of Care Code Est Pt Level 4 (80599) Diagnoses Ascending cholangitis K83.09 Hyperthyroidism E05.90 Hypercholesterolemia E78.00 Gastroesophageal reflux disease without esophagitis K21.9 Esophagitis presence: without esophagitis Generalized anxiety disorder F41.1 Nicotine dependence, cigarettes, uncomplicated F17.210 Additional Codes SHAYNA-7 Assessment Billing - SHAYNA-7 Assessment Tool: SHAYNA-7 Assessment [id number] ([id number])
== END 2023-10-01 14:04 | disposition home or self-care (01) ==
PROVIDERS: PCP Internal Medicine; Visit Provider Internal Medicine
DX: K83.09 Other cholangitis (principal); E05.90 Thyrotoxicosis, unspecified without thyrotoxic crisis or storm; E78.00 Pure hypercholesterolemia, unspecified; K21.9 Gastro-esophageal reflux disease without esophagitis; F41.1 Generalized anxiety disorder; F17.210 Nicotine dependence, cigarettes, uncomplicated
CPT/HCPCS: 99214